=== PATIENT | female | born 2000 | race Two or more races ===

== ENCOUNTER 2021-12-16 15:03 | Emergency (ER) | payer OTHER ==
[2021-12-16 16:09] LABS: INFLUENZA A NAA NEGATIVE (NEGATIVE)
[2021-12-16 16:14] LABS: CORONAVIRUS 2019 SARS-COV-2 POSITIVE (NEGATIVE)
== END 2021-12-16 17:05 | disposition home or self-care (01) ==
LOC: FER 15:03
PROVIDERS: Nurse Practitioner Family
DX: U07.1 COVID-19 (principal); F17.290 Nicotine dependence, other tobacco product, uncomplicated
CPT/HCPCS: 87880; 99283; U0002